=== PATIENT | female | born 1950 | race Caucasian/White ===

== ENCOUNTER 2021-01-08 09:28 | Emergency (ER) | payer MEDICARE ==
[2021-01-08] MEDS ORDERED: methylPREDNISolone Sod Succ/PF 125 MG/2 ML VIAL ONE (09:56)
[2021-01-08] MEDS ORDERED: methylPREDNISolone Sod Succ/PF 125 MG/2 ML VIAL IVP SCH (10:15)
[2021-01-08] MEDS ORDERED: tiZANidine HCl 4 MG TAB PO SCH (10:15)
[2021-01-08] MEDS ORDERED: Sodium Chloride 0.9% 1,000 ML IV SCH (10:15)
[2021-01-08 10:41] LABS: #Lymphocytes 0.7 thou/uL (1.20-3.40); #Monocytes 0.2 thou/uL (0.11-0.59); #Neutrophils 4.9 thou/uL (1.40-6.50); %Basophils 0.1 % (0.0-1.0); %Monocytes 3.3 % (0.0-10.0); %Neutrophils 84.5 % (42.0-75.0); Hemoglobin 12.6 g/dL (12.0-16.0); Mean Corpuscular HGB CONC 32.9 g/dL (32.0-36.0); Mean Corpuscular Hemoglobin 30.8 pg (27.0-31.0); Mean Corpuscular Volume 93.5 fL (78.0-98.0); Mean Platelet Volume 7.9 fL (7.4-10.4); Platelet Count 150 thou/uL (130-400); RBC Distribution Width 15.3 % (11.5-14.5); Red Blood Cell (RBC) Count 4.08 mill/uL (4.20-5.40); White Blood Cell (WBC) Count 5.8 thou/uL (4.8-10.8)
[2021-01-08 10:42] LABS: ALT (SGPT) 16 U/L (8-55); AST (SGOT) 24 U/L (5-34); Albumin 3.5 g/dL (3.4-4.8); Alkaline Phosphatase 69 U/L (40-110); Anion Gap 16 mmol/L (10-20); BUN (Urea Nitrogen) 33 mg/dL (9.8-20.1); Bilirubin, Total 0.7 mg/dL (0.2-1.2); Calc. Creatinine Clearance 0 mL/min (70-130); Calcium 8.5 mg/dL (7.8-10.44); Carbon Dioxide 20 mmol/L (23-31); Chloride 101 mmol/L (98-107); Globulin 4.3 g/dL (2.4-3.5); Glucose 218 mg/dL (80-115); Potassium 3.5 mmol/L (3.5-5.1); Protein, Total 7.8 g/dL (5.8-8.1); Sodium 133 mmol/L (136-145)
[2021-01-08] MEDS ORDERED: Albuterol Sulfate 2.5 mg/0.5 ml Neb ONE (10:59)
[2021-01-08 11:13] LABS: Base Excess-Venous -5.1 mmol/L (-2.0 to 3.0); Bicarbonate (HCO3v) 22.4 mmol/L (22.0-28.0); CO2 Tension (PvCO2) 50.3 mmHg (42.0-51.0); Calcium, Ionized 1.08 mmol/L (1.15-1.33); Chloride 101 mmol/L (98-107); Hemoglobin - Calc 13.3 g/dL (12.0-16.0); Potassium 3.3 mmol/L (3.5-5.1); Sodium 135 mmol/L (138-145); T. Carbon Dioxide 23.9 mmol/L (22.0-28.0); vO2 Saturation-calc 97.9 % (60.0-85.0)
[2021-01-08] MEDS ORDERED: Albuterol Sulfate 1.25 MG/3 ML NEB ONE (14:38)
== END 2021-01-08 19:00 | disposition short-term general hospital (02) ==
LOC: BURERS 09:28
DX: U07.1 COVID-19 (principal); R09.02 Hypoxemia; Z87.891 Personal history of nicotine dependence
CPT/HCPCS: 36415; 71045; 80053; 82330; 82803; 83605; 83880; 85025; 87040; 93005; 94640; 96374; J2930; J7611; J7620

== ENCOUNTER 2022-03-21 19:24 | Emergency (ER) | payer MEDICARE ==
[2022-03-21] MEDS ORDERED: Ibuprofen 800 MG TAB ONE (20:07)
[2022-03-21 20:21] LABS: #Eosinphils 0.1 thou/uL (0.0-0.7); #Lymphocytes 1.1 thou/uL (1.20-3.40); #Monocytes 0.6 thou/uL (0.11-0.59); #Neutrophils 10.5 thou/uL (1.40-6.50); %Basophils 0.4 % (0.0-1.0); %Eosinophils 0.5 % (0.0-10.0); %Monocytes 4.6 % (0.0-10.0); %Neutrophils 85.5 % (42.0-75.0); Hemoglobin 11.9 g/dL (12.0-16.0); Mean Corpuscular HGB CONC 31.8 g/dL (32.0-36.0); Mean Corpuscular Hemoglobin 31.8 pg (27.0-31.0); Mean Corpuscular Volume 99.9 fl (78.0-98.0); Mean Platelet Volume 7.3 fL (7.4-10.4); Platelet Count 177 10x3/uL (130-400); RBC Distribution Width 13.5 % (11.5-14.5); Red Blood Cell (RBC) Count 3.73 mill/uL (4.20-5.40); White Blood Cell (WBC) Count 12.3 10x3/uL (4.8-10.8)
[2022-03-21 20:26] LABS: Bilirubin Negative (Negative); Blood, Urine Moderate (Negative); Clarity Turbid (Clear); Glucose, Urine (Dipstick) 100 mg/dL (Negative); Ketone, Urine Trace mg/dL (Negative); Leukocyte Large (Negative); Nitrite Negative (Negative); Protein, Urine (Dipstick) > or equal to 300 mg/dL (Neg-Trace); Specific Gravity, Urine 1.025 (1.005-1.030); Urobilinogen 0.2 mg/dL (Less than 2)
[2022-03-21 20:36] LABS: Bacteria/HPF 2+ HPF (None Seen); Squamous Epithelial 0-3 HPF (0-3); WBC/HPF Greater Than 50 HPF (0-3)
[2022-03-21 20:38] LABS: ALT (SGPT) 19 U/L (8-55); AST (SGOT) 17 U/L (5-34); Albumin 3.9 g/dL (3.4-4.8); Alkaline Phosphatase 99 U/L (40-110); Anion Gap 19 mmol/L (10-20); BUN (Urea Nitrogen) 22 mg/dL (9.8-20.1); Bilirubin, Total 1.2 mg/dL (0.2-1.2); Calc. Creatinine Clearance 0 mL/min (70-130); Carbon Dioxide 16 mmol/L (23-31); Chloride 102 mmol/L (98-107); Estimated GFR 25; Globulin 4.2 g/dL (2.4-3.5); Glucose 289 mg/dL (83-110); Potassium 3.9 mmol/L (3.5-5.1); Protein, Total 8.1 g/dL (5.8-8.1); Sodium 133 mmol/L (136-145)
[2022-03-21] MEDS ORDERED: Acetaminophen/Codeine 30-300mg Tablet ONE (20:38)
[2022-03-21 22:41] LABS: Anion Gap 17 mmol/L (10-20); BUN (Urea Nitrogen) 21 mg/dL (9.8-20.1); Calc. Creatinine Clearance 0 mL/min (70-130); Calcium 8.3 mg/dL (7.8-10.44); Carbon Dioxide 15 mmol/L (23-31); Chloride 106 mmol/L (98-107); Estimated GFR 28; Glucose 236 mg/dL (83-110); Potassium 3.8 mmol/L (3.5-5.1); Sodium 134 mmol/L (136-145)
[2022-03-21] MEDS ORDERED: cefTRIAXone\\ROCEPHIN 1 GM VIAL ONE (23:09)
[2022-03-21] MEDS ORDERED: Sodium Bicarb 50 MEQ/50 ML Abboject 8.4% SYRINGE ONE ×2 (23:17→23:18)
== END 2022-03-22 00:25 | disposition home or self-care (01) ==
LOC: BURERS 19:24
DX: N28.9 Disorder of kidney and ureter, unspecified (principal); N39.0 Urinary tract infection, site not specified; E87.20 Acidosis, unspecified; Z79.899 Other long term (current) drug therapy; Z87.891 Personal history of nicotine dependence
CPT/HCPCS: 36415; 80053; 81003; 81015; 83605; 85025; 87040; 87086; 93005; 96374; 96375; J0696

== ENCOUNTER 2022-06-26 08:58 | Emergency (ER) | payer MEDICARE ==
[2022-06-26 09:51] LABS: #Eosinphils 0.1 thou/uL (0.0-0.7); #Monocytes 0.4 thou/uL (0.11-0.59); %Basophils 0.6 % (0.0-1.0); %Eosinophils 2.6 % (0.0-10.0); %Lymphocytes 18.1 % (21.0-51.0); %Monocytes 6.7 % (0.0-10.0); %Neutrophils 72.1 % (42.0-75.0); Hemoglobin 11.3 g/dL (12.0-16.0); Mean Corpuscular HGB CONC 34.2 g/dL (32.0-36.0); Mean Corpuscular Hemoglobin 33.5 pg (27.0-31.0); Mean Corpuscular Volume 97.8 fl (78.0-98.0); Platelet Count 189 10x3/uL (130-400); RBC Distribution Width 14.9 % (11.5-14.5); Red Blood Cell (RBC) Count 3.37 mill/uL (4.20-5.40); White Blood Cell (WBC) Count 5.6 10x3/uL (4.8-10.8)
[2022-06-26 10:01] LABS: Bilirubin Negative (Negative); Blood, Urine Trace (Negative); Clarity Cloudy (Clear); Glucose, Urine (Dipstick) 100 mg/dL (Negative); Ketone, Urine Negative (Negative); Leukocyte Moderate (Negative); Nitrite Negative (Negative); Protein, Urine (Dipstick) 30 mg/dL (Neg-Trace); Specific Gravity, Urine 1.025 (1.005-1.030); Urobilinogen 0.2 mg/dL (Less than 2); pH, Urine 5.5 (5.0-9.0)
[2022-06-26 10:08] LABS: Bacteria/HPF 2+ HPF (None Seen); RBC/HPF 0-3 HPF (0-3); Renal Epithelial 0-3 HPF (None Seen); Transitional Epithelial 0-3 HPF (None Seen); WBC/HPF 21-50 HPF (0-3)
[2022-06-26 10:09] LABS: ALT (SGPT) 17 U/L (8-55); AST (SGOT) 22 U/L (5-34); Alkaline Phosphatase 92 U/L (40-110); Anion Gap 16 mmol/L (10-20); BUN (Urea Nitrogen) 9 mg/dL (9.8-20.1); Bilirubin, Total 1.1 mg/dL (0.2-1.2); Calc. Creatinine Clearance 0 mL/min (70-130); Calcium 8.5 mg/dL (7.8-10.44); Carbon Dioxide 24 mmol/L (23-31); Chloride 100 mmol/L (98-107); Estimated GFR 55; Globulin 3.4 g/dL (2.4-3.5); Glucose 225 mg/dL (83-110); Potassium 3.6 mmol/L (3.5-5.1); Protein, Total 7.4 g/dL (5.8-8.1); Sodium 136 mmol/L (136-145)
[2022-06-26] MEDS ORDERED: Magnesium 2 GM/50 ML BAG (IN WATER) ONE ×2 (11:00→11:18)
[2022-06-26] MEDS ORDERED: Ketorolac Tromethamine 30 MG/ML VIAL ONE (11:12)
== END 2022-06-26 17:15 | disposition short-term general hospital (02) ==
LOC: BURERS 08:58
DX: S22.32XA Fracture of one rib, left side, initial encounter for closed fracture (principal); E83.42 Hypomagnesemia; I10 Essential (primary) hypertension; X58.XXXA Exposure to other specified factors, initial encounter
CPT/HCPCS: 36415; 71045; 71250; 80053; 81003; 81015; 83605; 83735; 83880; 84484; 85025; 93005; 96374; 96375; J1885; J3475

== ENCOUNTER 2022-07-09 10:23 | Outpatient (CLI) | payer MEDICARE | END 2022-07-09 10:24 | disposition home or self-care (01) | LOC: BURRAD 10:23 | PROVIDERS: ATTEND Nurse Practitioner | DX: J94.2 Hemothorax (principal) | CPT/HCPCS: 71046 ==

== ENCOUNTER 2022-09-16 15:50 | Inpatient (IN) | payer MEDICARE ==
[2022-09-16 16:25] VITALS: BMI 27.6
[2022-09-16] MEDS ORDERED: Bisacodyl 5 MG TAB PO PRN (16:42)
[2022-09-16] MEDS ORDERED: Bisacodyl 10 MG SUPP PR PRN (16:42)
[2022-09-16] MEDS ORDERED: Senokot S 8.6-50 MG TAB PO PRN (16:43)
[2022-09-16] MEDS ORDERED: Loperamide HCl 2 MG CAP PO PRN ×2 (16:43)
[2022-09-16] MEDS ORDERED: Acetaminophen 650 MG Suppository PR PRN (16:45)
[2022-09-16] MEDS ORDERED: Calcium Carbonate 500 MG ChewTAB PO PRN (16:45)
[2022-09-16] MEDS ORDERED: HYDROcodone/Acetaminophen 5/325 mg Tablet PO PRN (16:45)
[2022-09-16] MEDS ORDERED: Ondansetron ODT 4 MG TAB SL PRN (16:45)
[2022-09-16] MEDS ORDERED: Acetaminophen 325 MG TAB PO PRN (16:45)
[2022-09-16] MEDS ORDERED: Ondansetron PF 4 MG/2 ML Vial SLOW IVP PRN (16:45)
[2022-09-16] MEDS ORDERED: Benzonatate 100 MG CAP PO PRN (18:05)
[2022-09-16] MEDS ORDERED: Albuterol 200 PUFF (6.7GM INHALER) INH PRN (18:05)
[2022-09-16] MEDS: HYDROcodone/Acetaminophen 5/325 mg Tablet PO PRN (18:41)
[2022-09-16] MEDS ORDERED: Ciprofloxacin 500 MG TAB PO SCH (20:00)
[2022-09-16] MEDS: Sertraline 100 MG TAB PO SCH (21:11)
[2022-09-16] MEDS: Metoprolol Tartrate 25 MG TAB PO SCH (21:11)
[2022-09-16] MEDS: Atorvastatin Calcium 10 MG TAB PO SCH (21:11)
[2022-09-16] MEDS: Transdermal Patch Removal TOP SCH (22:15)
[2022-09-16] MEDS: Zolpidem Tartrate 5 MG TAB PO PRN (22:20)
[2022-09-17 05:46] LABS: #Eosinphils 0.2 thou/uL (0.0-0.7); #Lymphocytes 1.1 thou/uL (1.20-3.40); #Monocytes 0.3 thou/uL (0.11-0.59); #Neutrophils 2.4 thou/uL (1.40-6.50); %Basophils 0.8 % (0.0-1.0); %Lymphocytes 26.5 % (21.0-51.0); %Monocytes 8.4 % (0.0-10.0); %Neutrophils 59.3 % (42.0-75.0); Hemoglobin 10.2 g/dL (12.0-16.0); Mean Corpuscular HGB CONC 32.9 g/dL (32.0-36.0); Mean Corpuscular Hemoglobin 32.9 pg (27.0-31.0); Mean Platelet Volume 5.7 fL (7.4-10.4); Platelet Count 171 10x3/uL (130-400); Red Blood Cell (RBC) Count 3.11 mill/uL (4.20-5.40)
[2022-09-17 05:58] LABS: Anion Gap 11 mmol/L (10-20); BUN (Urea Nitrogen) 24 mg/dL (9.8-20.1); Calc. Creatinine Clearance 53 mL/min (70-130); Calcium 8.9 mg/dL (7.8-10.44); Carbon Dioxide 17 mmol/L (23-31); Chloride 111 mmol/L (98-107); Estimated GFR 45; Glucose 117 mg/dL (83-110); Sodium 135 mmol/L (136-145)
[2022-09-17] MEDS: Alogliptin 25 MG TAB PO SCH (08:59)
[2022-09-17] MEDS: Sertraline 100 MG TAB PO SCH ×2 (08:59→20:46)
[2022-09-17] MEDS: Ferrous Sulfate 325 MG TAB PO SCH (09:00)
[2022-09-17] MEDS ORDERED: MAGNESIUM CHLORIDE 71.5 MG PO SCH (09:00)
[2022-09-17] MEDS: Metoprolol Tartrate 25 MG TAB PO SCH ×2 (09:01→20:46)
[2022-09-17] MEDS: Lidocaine 5% Patch TD SCH (09:01)
[2022-09-17] MEDS ORDERED: Dextrose 50% Abboject 50 ML SYRINGE SLOW IVP PRN (16:31)
[2022-09-17] MEDS ORDERED: Dextrose 5% in Water 1,000 ML IV PRN (16:31)
[2022-09-17] MEDS: HYDROcodone/Acetaminophen 5/325 mg Tablet PO PRN (20:45)
[2022-09-17] MEDS: Atorvastatin Calcium 10 MG TAB PO SCH (20:46)
[2022-09-17] MEDS: Transdermal Patch Removal TOP SCH (20:46)
[2022-09-17] MEDS: Zolpidem Tartrate 5 MG TAB PO PRN (20:46)
[2022-09-18] MEDS: Lidocaine 5% Patch TD SCH (08:19)
[2022-09-18] MEDS: Alogliptin 25 MG TAB PO SCH (08:21)
[2022-09-18] MEDS: Sertraline 100 MG TAB PO SCH ×2 (08:23→21:01)
[2022-09-18] MEDS: Ferrous Sulfate 325 MG TAB PO SCH (08:23)
[2022-09-18] MEDS: Metoprolol Tartrate 25 MG TAB PO SCH ×2 (08:24→21:01)
[2022-09-18] MEDS: Magnesium Oxide 400 MG TAB PO SCH (08:24)
[2022-09-18] MEDS: HYDROcodone/Acetaminophen 5/325 mg Tablet PO PRN ×2 (13:34→21:01)
[2022-09-18] MEDS: Atorvastatin Calcium 10 MG TAB PO SCH (21:01)
[2022-09-18] MEDS: Zolpidem Tartrate 5 MG TAB PO PRN (21:01)
[2022-09-18] MEDS: Transdermal Patch Removal TOP SCH (21:01)
[2022-09-19] MEDS: HYDROcodone/Acetaminophen 5/325 mg Tablet PO PRN ×3 (06:11→14:31)
[2022-09-19] MEDS: Alogliptin 25 MG TAB PO SCH (08:27)
[2022-09-19] MEDS: Lidocaine 5% Patch TD SCH (08:27)
[2022-09-19] MEDS: Magnesium Oxide 400 MG TAB PO SCH (08:30)
[2022-09-19] MEDS: Ferrous Sulfate 325 MG TAB PO SCH (08:31)
[2022-09-19] MEDS: Metoprolol Tartrate 25 MG TAB PO SCH ×2 (08:31→21:15)
[2022-09-19] MEDS: Sertraline 100 MG TAB PO SCH ×2 (08:31→21:15)
[2022-09-19] MEDS: Atorvastatin Calcium 10 MG TAB PO SCH (21:15)
[2022-09-19] MEDS: Transdermal Patch Removal TOP SCH (21:16)
[2022-09-19] MEDS: Zolpidem Tartrate 5 MG TAB PO PRN (22:59)
[2022-09-20] MEDS: Ferrous Sulfate 325 MG TAB PO SCH (08:02)
[2022-09-20] MEDS: Lidocaine 5% Patch TD SCH (09:54)
[2022-09-20] MEDS: Sertraline 100 MG TAB PO SCH ×2 (09:54→21:05)
[2022-09-20] MEDS: Alogliptin 6.25 MG TAB PO SCH (09:55)
[2022-09-20] MEDS: Metoprolol Tartrate 25 MG TAB PO SCH ×2 (09:55→21:05)
[2022-09-20] MEDS: Magnesium Oxide 400 MG TAB PO SCH (09:55)
[2022-09-20] MEDS: Atorvastatin Calcium 10 MG TAB PO SCH (21:04)
[2022-09-20] MEDS: Transdermal Patch Removal TOP SCH (21:05)
[2022-09-20] MEDS: Zolpidem Tartrate 5 MG TAB PO PRN (21:05)
[2022-09-21 05:43] LABS: #Eosinphils 0.1 thou/uL (0.0-0.7); #Lymphocytes 1.4 thou/uL (1.20-3.40); #Monocytes 0.3 thou/uL (0.11-0.59); #Neutrophils 4.1 thou/uL (1.40-6.50); %Basophils 0.8 % (0.0-1.0); %Eosinophils 2.1 % (0.0-10.0); %Lymphocytes 23.9 % (21.0-51.0); %Monocytes 4.6 % (0.0-10.0); %Neutrophils 68.6 % (42.0-75.0); Hemoglobin 10.9 g/dL (12.0-16.0); Mean Corpuscular HGB CONC 32.7 g/dL (32.0-36.0); Mean Corpuscular Hemoglobin 32.6 pg (27.0-31.0); Mean Corpuscular Volume 99.6 fl (78.0-98.0); Mean Platelet Volume 6.5 fL (7.4-10.4); Platelet Count 146 10x3/uL (130-400); RBC Distribution Width 14.9 % (11.5-14.5); Red Blood Cell (RBC) Count 3.35 mill/uL (4.20-5.40); White Blood Cell (WBC) Count 5.9 10x3/uL (4.8-10.8)
[2022-09-21 05:45] LABS: Anion Gap 12 mmol/L (10-20); BUN (Urea Nitrogen) 23 mg/dL (9.8-20.1); Calc. Creatinine Clearance 50 mL/min (70-130); Carbon Dioxide 18 mmol/L (23-31); Chloride 107 mmol/L (98-107); Estimated GFR 43; Glucose 132 mg/dL (83-110); Potassium 4.3 mmol/L (3.5-5.1); Sodium 133 mmol/L (136-145)
[2022-09-21 05:48] LABS: Calcium 9.2 mg/dL (7.8-10.44)
[2022-09-21] MEDS: HYDROcodone/Acetaminophen 5/325 mg Tablet PO PRN (06:18)
[2022-09-21] MEDS: Lidocaine 5% Patch TD SCH (09:46)
[2022-09-21] MEDS: Insulin Regular 300 UNITS/3 ML VIAL SC PRN ×3 (09:46→17:35)
[2022-09-21] MEDS: Sertraline 100 MG TAB PO SCH ×2 (09:49→20:44)
[2022-09-21] MEDS: Alogliptin 6.25 MG TAB PO SCH (09:50)
[2022-09-21] MEDS: Magnesium Oxide 400 MG TAB PO SCH (09:50)
[2022-09-21] MEDS: Ferrous Sulfate 325 MG TAB PO SCH (09:51)
[2022-09-21] MEDS: Metoprolol Tartrate 25 MG TAB PO SCH ×2 (09:51→20:44)
[2022-09-21] MEDS: Atorvastatin Calcium 10 MG TAB PO SCH (20:44)
[2022-09-21] MEDS: Zolpidem Tartrate 5 MG TAB PO PRN (20:45)
[2022-09-21] MEDS: Transdermal Patch Removal TOP SCH (20:47)
[2022-09-22] MEDS: Alogliptin 6.25 MG TAB PO SCH (08:54)
[2022-09-22] MEDS: Lidocaine 5% Patch TD SCH (08:54)
[2022-09-22] MEDS: Sertraline 100 MG TAB PO SCH ×2 (08:55→20:38)
[2022-09-22] MEDS: Magnesium Oxide 400 MG TAB PO SCH (08:55)
[2022-09-22] MEDS: Metoprolol Tartrate 25 MG TAB PO SCH ×2 (08:55→20:38)
[2022-09-22] MEDS: Ferrous Sulfate 325 MG TAB PO SCH (08:56)
[2022-09-22] MEDS: Insulin Regular 300 UNITS/3 ML VIAL SC PRN ×2 (09:01→12:45)
[2022-09-22] MEDS: HYDROcodone/Acetaminophen 5/325 mg Tablet PO PRN (19:40)
[2022-09-22] MEDS: Atorvastatin Calcium 10 MG TAB PO SCH (20:38)
[2022-09-22] MEDS: Zolpidem Tartrate 5 MG TAB PO PRN (20:38)
[2022-09-22] MEDS: Transdermal Patch Removal TOP SCH (20:39)
[2022-09-23] MEDS: HYDROcodone/Acetaminophen 5/325 mg Tablet PO PRN ×3 (03:12→20:47)
[2022-09-23] MEDS: Lidocaine 5% Patch TD SCH (08:18)
[2022-09-23] MEDS: Sertraline 100 MG TAB PO SCH ×2 (08:19→20:48)
[2022-09-23] MEDS: Alogliptin 6.25 MG TAB PO SCH (08:19)
[2022-09-23] MEDS: Metoprolol Tartrate 25 MG TAB PO SCH ×2 (08:20→20:49)
[2022-09-23] MEDS: Magnesium Oxide 400 MG TAB PO SCH (08:20)
[2022-09-23] MEDS: Ferrous Sulfate 325 MG TAB PO SCH (08:21)
[2022-09-23 17:05] VITALS: TEMP 97.6
[2022-09-23] MEDS: Zolpidem Tartrate 5 MG TAB PO PRN (20:48)
[2022-09-23] MEDS: Atorvastatin Calcium 10 MG TAB PO SCH (20:48)
[2022-09-23] MEDS: Transdermal Patch Removal TOP SCH (23:02)
[2022-09-24] MEDS: HYDROcodone/Acetaminophen 5/325 mg Tablet PO PRN ×2 (01:54→08:54)
[2022-09-24 06:29] VITALS: BP 111/68
[2022-09-24] MEDS: Sertraline 100 MG TAB PO SCH (08:46)
[2022-09-24] MEDS: Alogliptin 6.25 MG TAB PO SCH (08:46)
[2022-09-24] MEDS: Magnesium Oxide 400 MG TAB PO SCH (08:46)
[2022-09-24] MEDS: Ferrous Sulfate 325 MG TAB PO SCH (08:46)
[2022-09-24] MEDS: Lidocaine 5% Patch TD SCH (08:47)
[2022-09-24] MEDS: Metoprolol Tartrate 25 MG TAB PO SCH (08:47)
[2022-09-26] MEDS ORDERED: Lidocaine 4% Patch TD SCH (09:00)
== END 2022-09-24 14:48 | disposition home health service (06) | DRG 560 ==
LOC: BURMED 15:50
PROVIDERS: ADMIT Family Medicine; ATTEND Nurse Practitioner
DX: S42.302D Unspecified fracture of shaft of humerus, left arm, subsequent encounter for fracture with routine healing (principal); N17.9 Acute kidney failure, unspecified; N39.0 Urinary tract infection, site not specified; R53.1 Weakness; F32.9 Major depressive disorder, single episode, unspecified; E86.0 Dehydration; I12.9 Hypertensive chronic kidney disease with stage 1 through stage 4 chronic kidney disease, or unspecified chronic kidney disease; E86.1 Hypovolemia; E11.22 Type 2 diabetes mellitus with diabetic chronic kidney disease; N18.9 Chronic kidney disease, unspecified; Z93.3 Colostomy status; Z79.899 Other long term (current) drug therapy; Z88.2 Allergy status to sulfonamides; Z79.84 Long term (current) use of oral hypoglycemic drugs
CPT/HCPCS: 36415; 36416; 80048; 83036; 85025; J1815